=== PATIENT | female | born 1980 | race Caucasian/White ===

== ENCOUNTER 2021-04-01 20:38 | Emergency (ER) | payer SELFPAY ==
[2021-04-02] MEDS ORDERED: Ibuprofen 200 MG TAB ONE (00:09)
== END 2021-04-02 00:18 | disposition home or self-care (01) ==
LOC: CSHERS 20:38
DX: U07.1 COVID-19 (principal); G43.909 Migraine, unspecified, not intractable, without status migrainosus; F17.290 Nicotine dependence, other tobacco product, uncomplicated
CPT/HCPCS: 71046